=== PATIENT | male | born 1960 ===

== ENCOUNTER → 2018-10-24 | Outpatient (CLI) | payer MEDICARE, OTHER ==
--- NOTE | 2018-10-24 12:28 | KCIC ---
MR of the right shoulder HISTORY: Right shoulder pain, chronic. Limited range of motion. TECHNIQUE: Routine multiplanar sequences are obtained. FINDINGS: Moderate to severe motion degradation. Acromioclavicular joint is degenerative, with small undersurface osteophytes and mild mass effect. Full-thickness rotator cuff rupture of the supraspinatus and infraspinatus tendons. Severe retraction measures at least 3.5 cm. Moderate muscle atrophy. Partial subscapularis tendon tear. Small glenohumeral joint and subdeltoid bursal effusion. Difficult to exclude labral tear given the motion degradation. Medial subluxation of the biceps tendon, perched over the lesser tuberosity. Mild glenohumeral joint degenerative change. No bone destruction. No acute fracture. IMPRESSION: 1. Moderate to severe motion degradation. 2. Large rotator cuff tear. Complete retracted rupture of the supraspinatus and infraspinatus tendon, partial subscapularis tendon tear. 3. Biceps tendon is subluxed medially. Electronically signed by: Juan Perez MD (10/24/2018 12:26 PM) [facility]
== END | disposition home or self-care (01) ==
LOC: KCIC MRI 08:18
DX: S46.011A Strain of muscle(s) and tendon(s) of the rotator cuff of right shoulder, initial encounter (principal); X58.XXXA Exposure to other specified factors, initial encounter; Y93.89 Activity, other specified; Y92.89 Other specified places as the place of occurrence of the external cause; Y99.8 Other external cause status
CPT/HCPCS: 73221

== ENCOUNTER → 2021-05-16 | Day surgery (SDC) | payer OTHER ==
[~2021-05-16] VITALS: Ht 170.2 cm; Wt 124.0 kg
[~2021-05-16] MED LIST: LIDOCAINE 1%/EPI 1:100,000 20 ML VIAL. INJ ONE
[2021-05-16 12:45] VITALS: BP 142/79
--- NOTE | 2021-05-16 13:21 | PDOC4 ---
Operative Note Operative Note Date: May 16, 2021 at 1:19 PM Preoperative diagnosis: Basal cell carcinoma the back Postoperative diagnosis: Same Procedure: Wide reexcision of mass Surgeon: Donovan Specimen: Back mass Dictation: Patient is a 61-year-old male had a sebaceous cyst removed from his back several weeks ago pathology reported malignancy within the specimen with positive margin. Procedure of reexcision with wider margins was explained to the patient detail risk benefits were also discussed including bleeding infection alternatives this procedure also discussed with the patient who seemed to understand and gave a verbal written consent had procedure performed. Patient was taken to the minor's room placed in the prone positioning his back was prepped and draped in usual sterile fashion using ChloraPrep. An area around the previous excision site was injected with 1% lidocaine with epinephrine an elliptical incision was made with 15 blade scalpel around this previous excision site sharply excising the area the area excised was 6 x 2 cm x 2 cm deep. This was sent for pathology the wound was then closed in 2 layers a deep layer running 3-0 Vicryl and the skin was reapproximated for subcuticular Monocryl Mastisol Steri-Strips and island dressings were applied. Patient was discharged from minors room in stable condition all sponge instrument needle counts listed as correct estimated blood loss 5 mL DORENE FLORES MD May 16, 2021 13:21
--- NOTE | 2021-05-16 13:23 | DISCH ---
DISCHARGE INSTRUCTIONS Condition on Discharge Condition on Discharge: Stable Activity After Discharge Activity Instructions for Disc: Activity as tolerated Diet after Discharge Diet Texture: Regular Wound Incision Care Other wound/incision instructi: May shower in 24 hours Contacting the after DC Call your doctor for: If your condition worsens Follow-Up Follow up with: Dr. Flores in 2 weeks DORENE FLORES MD May 16, 2021 13:23
--- NOTE | 2021-05-17 18:28 | PATHOLOGY ---
[facility] Accession Number: [id number] . 01 Material submitted: . back - SQUAMOUS CELL CARCINOMA OF BACK . 02 Diagnosis: Skin and subcutaneous tissue, wide excision back lesion: - INVASIVE MODERATELY-WELL DIFFERENTIATED SQUAMOUS CELL CARCINOMA, ARISING FROM A RUPTURED FOLLICULAR CYST SHOWING ACUTE AND CHRONIC INFLAMMATION AND FOREIGN BODY GIANT CELL REACTION. - Previous biopsy site changes showing scarring and focal chronic inflammation and foreign body (suture) granulomatous reaction. - Inked margins of excision free of neoplasm. (JPM/db; 05/17/2021) LBQ 05/17/2021 1759 Local . 02 Electronically signed: . Danny Alnoso MD, Pathologist NPI- [id number] . 01 Gross description: . The specimen is received in formalin, labeled "Adalid Sotelo, squamous cell carcinoma of back" and consists of an unoriented elliptical skin excision (5.2 x 1.8 cm, excised to a depth of 1.2 cm) which is surfaced with iverson smooth skin that displays a raised, wrinkled and roughened lesion (3.4 x 1.6 cm) that displays a blue-eric rim of discoloration. The lesion comes to within 0.9 cm from the nearest tip, 1.0 cm from the opposing tip, involves the nearest edge margin and comes to within 0.1 cm from the opposing edge margin. Sectioning reveals iverson-pink to white, dusky and focally oozing cut surfaces. [employer] sections are submitted sequentially to include the entirety of the lesion in 8 cassettes with the tips submitted in A8.([facility]; 05/16/2021) DKA/DKA 05/16/2021 1703 Local . 02 Pathologist provided ICD-10: C44.529 . 02 CPT . 240197 Specimen Comment: A courtesy copy of this report has been sent to [phone], [phone] Specimen Comment: [id number] Specimen Comment: Report sent to / DR SOARES Specimen Comment: A duplicate report has been generated due to demographic updates. Performed at: 01 [facility] [address], [place] [id number] MD Brandin Ridley MD Phone: [phone] Performed at: 02 [facility] [address] [place], [place] [id number] MD Danny Alonso MD Phone: [phone]
== END | disposition home or self-care (01) ==
LOC: SURG 11:31
PROVIDERS: ATTEND Surgery
DX: C44.529 Squamous cell carcinoma of skin of other part of trunk (principal); I10 Essential (primary) hypertension; E78.00 Pure hypercholesterolemia, unspecified; M19.90 Unspecified osteoarthritis, unspecified site; E11.9 Type 2 diabetes mellitus without complications; Z79.899 Other long term (current) drug therapy; Z98.890 Other specified postprocedural states
CPT/HCPCS: 11606; 88305; J3490